=== PATIENT | female | born 1985 | race Caucasian/White ===

== ENCOUNTER 2023-10-22 12:50 | Emergency (ER) | payer MEDICAID ==
[2023-10-22] MEDS: Sodium Chloride 0.9% 1,000 ML IV SCH (13:38)
[2023-10-22] MEDS: Ondansetron 4 MG/2 ML SDV IVPUSH ONE (13:41)
[2023-10-22 13:46] LABS: BASOPHILS PERCENT AUTO 0.2 % (0.1-1.3); EOSINOPHILS ABSOLUTE AUTO 0.06 K/uL (0.00-0.40); EOSINOPHILS PERCENT AUTO 0.7 % (0.0-5.4); HEMATOCRIT 41.2 % (34.3-46.0); HEMOGLOBIN 14.4 g/dL (11.2-15.5); IMMATURE GRAN ABSOLUTE AUTO 0.03 K/uL (0.00-0.23); IMMATURE GRAN PERCENT AUTO 0.3 % (0.0-0.7); LYMPHOCYTES ABSOLUTE AUTO 2.18 K/uL (0.8-3.3); LYMPHOCYTES PERCENT AUTO 25.1 % (11.4-47.7); MEAN CORPUSCULAR HEMOGLOBIN 33.5 pg (31.6-35.5); MEAN CORPUSCULAR VOLUME 95.8 fL (81.4-99.0); MONOCYTES ABSOLUTE AUTO 0.53 K/uL (0.20-0.90); MONOCYTES PERCENT AUTO 6.1 % (3.3-12.6); NEUTROPHILS ABSOLUTE AUTO 5.88 K/uL (1.0-7.6); NEUTROPHILS PERCENT AUTO 67.6 % (40.0-78.1); PLATELET COUNT,PLT 286 K/uL (130-375); WHITE BLOOD CELL COUNT,WBC 8.7 K/uL (3.2-11.0)
[2023-10-22 13:51] LABS: BASOPHILS ABSOLUTE AUTO 0.02 K/uL (0.00-0.10)
[2023-10-22 14:07] LABS: LACTIC ACID 2.3 mmol/L (0.4-2.0)
[2023-10-22 14:16] LABS: ALANINE AMINOTRANSFERASE,ALT 67 U/L (12-78); ALKALINE PHOSPHATASE 178 U/L (46-116); ASPARTATE AMNIOTRANSFERASE,AST 120 U/L (15-37); BILIRUBIN TOTAL 0.9 mg/dL (0.2-1.0); CARBON DIOXIDE,CO2 17 mmol/L (21-32); CHLORIDE,CL 104 mmol/L (100-108); POTASSIUM,K 4.4 mmol/L (3.6-5.2); PROTEIN TOTAL,TP 6.9 g/dL (6.4-8.2); SODIUM,NA 140 mmol/L (140-148); TROPONIN I HIGH SENSITIVITY 22.8 pg/mL (<=60.3)
[2023-10-22] MEDS ORDERED: Naloxone 0.4 MG/ML SDV IVPUSH PRN (14:41)
[2023-10-22] MEDS: Alum Hydrox/Mag Hydrox/Simeth 15 ML, Lidocaine 2% 15 ML PO ONE (14:55)
[2023-10-22] MEDS: Morphine 2 MG/ML SYRINGE IVPUSH ONE (14:56)
[2023-10-22 15:03] LABS: A/G RATIO 0.7 (1.2-2.2); ALBUMIN 2.9 g/dL (3.4-5.0); BLOOD UREA NITROGEN,BUN 10 mg/dL (7-18); C-REACTIVE PROTEIN 2.63 mg/dL (<0.50); CALCIUM 7.8 mg/dL (8.5-10.1); CREATININE 0.8 mg/dL (0.6-1.0); EST CRCL DRUG DOSING (CG) 91.81 mL/min; ESTIMATED GFR 96 mL/min (>60); GLUCOSE RANDOM 103 mg/dL (74-106)
[2023-10-22 15:09] LABS: ANION GAP 23.4 mmol/L (5.0-14.0)
[2023-10-22] MEDS: Sodium Chloride 0.9% 100 ML IV SCH (15:57)
[2023-10-22] MEDS: Iopamidol 755 Mg/ML 100 ML Bottle IV SCH (15:57)
[2023-10-22] MEDS: Furosemide 20 MG/2 ML VIAL IVPUSH ONE (16:59)
[2023-10-23] MEDS ORDERED: Lisinopril 2.5 MG Tab PO SCH (09:00)
== END 2023-10-22 18:30 | disposition home or self-care (01) ==
LOC: JP.ED 12:50
DX: J81.1 Chronic pulmonary edema (principal); F17.210 Nicotine dependence, cigarettes, uncomplicated; Z79.899 Other long term (current) drug therapy
CPT/HCPCS: 36415; 71275; 74177; 80053; 81025; 83605; 83690; 84484; 85025; 85379; 86140; 93005; 96361; 96374; 96375; 99285; A9270; J1940; J2270; J2405; J3490; J7030; Q9967

== ENCOUNTER 2023-11-24 11:15 | Emergency (ER) | payer MEDICAID ==
[2023-11-24 12:16] LABS: BASOPHILS ABSOLUTE AUTO 0.03 K/uL (0.00-0.10); BASOPHILS PERCENT AUTO 0.4 % (0.1-1.3); EOSINOPHILS ABSOLUTE AUTO 0.15 K/uL (0.00-0.40); HEMATOCRIT 44.3 % (34.3-46.0); HEMOGLOBIN 15.6 g/dL (11.2-15.5); IMMATURE GRAN PERCENT AUTO 0.1 % (0.0-0.7); LYMPHOCYTES PERCENT AUTO 26.1 % (11.4-47.7); MEAN CORPUSCULAR HEMOGLOBIN 33.7 pg (31.6-35.5); MEAN CORPUSCULAR HGB CONC 35.2 g/dL (31.6-35.5); MEAN CORPUSCULAR VOLUME 95.7 fL (81.4-99.0); MONOCYTES ABSOLUTE AUTO 0.53 K/uL (0.20-0.90); MONOCYTES PERCENT AUTO 6.9 % (3.3-12.6); NEUTROPHILS ABSOLUTE AUTO 4.94 K/uL (1.0-7.6); NEUTROPHILS PERCENT AUTO 64.5 % (40.0-78.1); PLATELET COUNT,PLT 283 K/uL (130-375); RED BLOOD CELL COUNT 4.63 M/uL (3.77-5.24); WHITE BLOOD CELL COUNT,WBC 7.7 K/uL (3.2-11.0)
[2023-11-24 12:24] LABS: IMMATURE GRAN ABSOLUTE AUTO 0.01 K/uL (0.00-0.23)
[2023-11-24 12:33] LABS: ANION GAP 9.1 mmol/L (5.0-14.0); BLOOD UREA NITROGEN,BUN 19 mg/dL (7-18); CALCIUM 9.3 mg/dL (8.5-10.1); CARBON DIOXIDE,CO2 29 mmol/L (21-32); CHLORIDE,CL 102 mmol/L (100-108); CREATININE 1.1 mg/dL (0.6-1.0); ESTIMATED GFR 66 mL/min (>60); GLUCOSE RANDOM 93 mg/dL (74-106); POTASSIUM,K 4.2 mmol/L (3.6-5.2); PRO B-TYPE NATRIUR PEPT,BNPPRO 3416 pg/mL (5-125); SODIUM,NA 140 mmol/L (140-148); TROPONIN I HIGH SENSITIVITY 16.4 pg/mL (<=60.3)
== END 2023-11-24 12:54 | disposition home or self-care (01) ==
LOC: JP.ED 11:15
DX: I50.9 Heart failure, unspecified (principal); E86.0 Dehydration; F17.210 Nicotine dependence, cigarettes, uncomplicated; Z79.899 Other long term (current) drug therapy
CPT/HCPCS: 36415; 80048; 83880; 84484; 85025; 99284